=== PATIENT | male | born 1935 | race Caucasian/White ===

== ENCOUNTER 2017-12-08 17:21 | Emergency (ER) | payer OTHER, MEDICARE ==
[2017-12-08 19:14] LABS: ALBUMIN 3.3 g/dL (3.5-5.0); BUN/CREATININE RATIO 28.3 (6.0-26.0); CALCIUM 8.8 mg/dL (8.4-10.2); POTASSIUM 4.2 mmol/L (3.6-5.0); TOTAL BILIRUBIN 0.3 mg/dL (0.2-1.3); TOTAL PROTEIN 6.5 g/dL (6.3-8.2)
[2017-12-08 19:20] LABS: EOS % 0.1 % (0.0-4.0); HEMATOCRIT 43.2 % (42.0-52.0); HEMOGLOBIN 14.2 g/dL (13.5-18.0); LYMPH# 1.5 (1.50-4.00); MEAN CELL VOLUME 91 fl (78-100); MEAN CORPUSCULAR HEMOGLOBIN 30 pg (27-31); MEAN CORPUSCULAR HGB CONC 33 g/dL (33-37); MEAN PLATELET VOLUME 10.3 fl (7.4-10.4); MONO # 0.5 (0.20-0.80); NEU # 6.5 (1.40-6.50); PLATELET COUNT 148 K/mm3 (130-400); RED BLOOD COUNT 4.76 M/mm3 (4.20-5.60); RED CELL DISTRIBUTION WIDTH 16.7 % (11.5-14.5)
[2017-12-08 19:36] LABS: TROPONIN-I < 0.03 ng/mL (0.00-0.06)
[2017-12-08] MEDS ORDERED: ASPIRIN E.C. 8181 MG PO (19:46)
[2017-12-08] MEDS ORDERED: PRAVACHOL 40MG40 MG PO (19:47)
[2017-12-08] MEDS ORDERED: HYGROTON 2525 MG/TAB PO (19:48)
[2017-12-08] MEDS ORDERED: OS-CAL 500+D31 EACH PO (19:48)
[2017-12-08] MEDS ORDERED: COZAAR100 MG PO (19:49)
[2017-12-08] MEDS ORDERED: PEPCID 20MG TAB20 MG PO (19:49)
[2017-12-08] MEDS ORDERED: CARDIZEM CD240 M1 PO (19:49)
[2017-12-08] MEDS ORDERED: POTASSIUM CHLO10 ME5 PO (19:50)
[2017-12-08] MEDS ORDERED: DELTASONE20 M1 PO (19:51)
[2017-12-08 19:56] LABS: D-DIMER 2.26 mg/L FEU (0.15-0.50)
[2017-12-08 20:26] LABS: URINE APPEARANCE CLEAR; URINE BILIRUBIN NEGATIVE (NEGATIVE); URINE COLOR YELLOW; URINE GLUCOSE NEGATIVE (NEGATIVE); URINE KETONE NEGATIVE (NEGATIVE); URINE NITRATE NEGATIVE (NEGATIVE); URINE PROTEIN(semi-quant) 2+ mg/dL (NEGATIVE); URINE UROBILINOGEN NORMAL (NORMAL)
[2017-12-08 20:27] LABS: URINE BLOOD NEGATIVE (NEGATIVE); URINE LEUKOCYTE ESTERASE NEGATIVE (NEGATIVE); URINE WBC 0-1 /hpf (0-3)
[2017-12-08 21:52] VITALS: BP 166/81
== END 2017-12-08 21:52 | disposition home or self-care (01) ==
LOC: ED 17:21
PROVIDERS: Nurse Practitioner Primary Care
DX: R06.02 Shortness of breath (principal); R53.1 Weakness; R79.89 Other specified abnormal findings of blood chemistry; I10 Essential (primary) hypertension; Z85.46 Personal history of malignant neoplasm of prostate; Z79.82 Long term (current) use of aspirin
CPT/HCPCS: J1650; J7030; Q9967

== ENCOUNTER → 2017-12-09 | Outpatient (CLI) | payer OTHER, MEDICARE ==
[2017-12-08 21:52] VITALS: BP 166/81
[~2017-12-09] MED LIST: ASPIRIN E.C. 8181 MG PO; CARDIZEM CD240 M1 PO; COZAAR100 MG PO; DELTASONE20 M1 PO; HYGROTON 2525 MG/TAB PO; NORCO 325 MG-51 TA1 PO; OS-CAL 500+D31 EACH PO; PEPCID 20MG TAB20 MG PO; POTASSIUM CHLO10 ME5 PO; PRAVACHOL 40MG40 MG PO; ZOFRAN4 M2 PO
== END ==
LOC: RAD 08:35
DX: M79.662 Pain in left lower leg (principal); R79.1 Abnormal coagulation profile

== ENCOUNTER 2017-12-20 05:07 | Emergency (ER) | payer OTHER, MEDICARE ==
[~2017-12-20] VITALS: Ht 177.8 cm; Wt 118.2 kg
[~2017-12-20 05:07] MED LIST changes: -NORCO 325 MG-51 TA1 PO; -ZOFRAN4 M2 PO
[2017-12-20 06:14] LABS: EOS # 0.1 (0.04-0.40); EOS % 0.4 % (0.0-4.0); HEMATOCRIT 46.1 % (42.0-52.0); HEMOGLOBIN 14.7 g/dL (13.5-18.0); LYMPH# 3.3 (1.50-4.00); MEAN CELL VOLUME 92 fl (78-100); MEAN CORPUSCULAR HEMOGLOBIN 30 pg (27-31); MEAN CORPUSCULAR HGB CONC 32 g/dL (33-37); MONO # 0.9 (0.20-0.80); NEU # 7.9 (1.40-6.50); PLATELET COUNT 163 K/mm3 (130-400); RED BLOOD COUNT 4.99 M/mm3 (4.20-5.60); RED CELL DISTRIBUTION WIDTH 16.4 % (11.5-14.5); WHITE BLOOD COUNT 12.5 K/mm3 (4.8-10.8)
[2017-12-20 06:22] LABS: BUN/CREATININE RATIO 25.6 (6.0-26.0); POTASSIUM 4.1 mmol/L (3.6-5.0); TOTAL PROTEIN 6.9 g/dL (6.3-8.2)
[2017-12-20 06:29] LABS: ALBUMIN 3.6 g/dL (3.5-5.0); TOTAL BILIRUBIN 0.4 mg/dL (0.2-1.3)
[2017-12-20 07:31] LABS: URINE APPEARANCE CLEAR; URINE BILIRUBIN NEGATIVE (NEGATIVE); URINE BLOOD NEGATIVE (NEGATIVE); URINE COLOR YELLOW; URINE GLUCOSE NEGATIVE (NEGATIVE); URINE KETONE NEGATIVE (NEGATIVE); URINE LEUKOCYTE ESTERASE NEGATIVE (NEGATIVE); URINE MUCUS PRESENT (NOT PRESENT); URINE NITRATE NEGATIVE (NEGATIVE); URINE PROTEIN(semi-quant) 3+ mg/dL (NEGATIVE); URINE UROBILINOGEN NORMAL (NORMAL)
[2017-12-20] MEDS ORDERED: NORCO 325 MG-51 TA1 PO (10:01)
[2017-12-20] MEDS ORDERED: ZOFRAN4 M2 PO (10:01)
[2017-12-20 10:22] VITALS: BP 148/88
== END 2017-12-20 10:07 | disposition home or self-care (01) ==
LOC: ED 05:07
PROVIDERS: Family Medicine
DX: R10.33 Periumbilical pain (principal); I10 Essential (primary) hypertension; Z85.46 Personal history of malignant neoplasm of prostate; Z79.82 Long term (current) use of aspirin; Z79.52 Long term (current) use of systemic steroids
CPT/HCPCS: J0595; J2405; Q9967

== ENCOUNTER → 2018-05-18 | Outpatient (CLI) | payer OTHER, MEDICARE ==
[~2018-05-18] MED LIST changes: +NORCO 325 MG-51 TA1 PO; +ZOFRAN4 M2 PO
== END ==
LOC: RAD 07:41
DX: M43.16 Spondylolisthesis, lumbar region (principal); M48.07 Spinal stenosis, lumbosacral region; M51.26 Other intervertebral disc displacement, lumbar region; M24.28 Disorder of ligament, vertebrae; I71.4 Abdominal aortic aneurysm, without rupture

== ENCOUNTER 2018-11-10 07:43 | Emergency (ER) | payer BC, MEDICARE ==
[~2018-11-10] VITALS: Wt 115.4 kg
[2018-11-10] MEDS ORDERED: ELIQUIS2.5 MG PO (07:56)
[2018-11-10] MEDS ORDERED: NEURONTIN300 MG/CAP (08:03)
[2018-11-10 08:11] LABS: BASO # 0.1 (0.02-0.10); EOS # 0.3 (0.04-0.40); EOS % 2.5 % (0.0-4.0); HEMATOCRIT 48.6 % (42.0-52.0); HEMOGLOBIN 15.8 g/dL (13.5-18.0); LYMPH# 2.6 (1.50-4.00); MEAN CELL VOLUME 87 fl (78-100); MEAN CORPUSCULAR HEMOGLOBIN 28 pg (27-31); MEAN CORPUSCULAR HGB CONC 33 g/dL (33-37); MEAN PLATELET VOLUME 9.9 fl (7.4-10.4); NEU # 6.2 (1.40-6.50); PLATELET COUNT 202 K/mm3 (130-400); RED BLOOD COUNT 5.58 M/mm3 (4.20-5.60); RED CELL DISTRIBUTION WIDTH 15.5 % (11.5-14.5); WHITE BLOOD COUNT 10.3 K/mm3 (4.8-10.8)
[2018-11-10 08:25] LABS: ALBUMIN 3.7 g/dL (3.5-5.0); CALCIUM 8.8 mg/dL (8.4-10.2); POTASSIUM 3.9 mmol/L (3.6-5.0); TOTAL BILIRUBIN 0.7 mg/dL (0.2-1.3)
[2018-11-10 08:42] LABS: PROTHROMBIN TIME 10.4 SECONDS (9.0-12.0)
[2018-11-10] MEDS ORDERED: ELIQUIS5 MG PO (11:01)
[2018-11-10] MEDS ORDERED: CARDIZEM CD360 MG PO (11:02)
[2018-11-10] MEDS ORDERED: POTASSIUM CHLO10 ME7 PO (11:03)
[2018-11-10] MEDS ORDERED: METOPROLOL SUCC25 M1 PO (11:03)
[2018-11-10] MEDS ORDERED: NEURONTIN600 M1 PO (11:03)
[2018-11-10 11:11] VITALS: BP 121/76
== END 2018-11-10 10:28 | disposition other institution (70) ==
LOC: ED 07:43
PROVIDERS: Nurse Practitioner Primary Care
DX: G93.41 Metabolic encephalopathy (principal); I95.1 Orthostatic hypotension; E86.0 Dehydration; N17.9 Acute kidney failure, unspecified; M54.9 Dorsalgia, unspecified; G89.29 Other chronic pain; I10 Essential (primary) hypertension; I48.91 Unspecified atrial fibrillation; K21.9 Gastro-esophageal reflux disease without esophagitis; Z79.82 Long term (current) use of aspirin; Z79.01 Long term (current) use of anticoagulants; Z87.891 Personal history of nicotine dependence; Z85.46 Personal history of malignant neoplasm of prostate; Z86.79 Personal history of other diseases of the circulatory system; W01.0XXA Fall on same level from slipping, tripping and stumbling without subsequent striking against object, initial encounter; Y92.009 Unspecified place in unspecified non-institutional (private) residence as the place of occurrence of the external cause
CPT/HCPCS: J7030

== ENCOUNTER 2018-11-10 10:28 | Inpatient (IN) | payer OTHER, MEDICARE ==
[~2018-11-10] VITALS: Ht 175.3 cm; Wt 113.2 kg
[~2018-11-10 10:28] MED LIST changes: +ELIQUIS2.5 MG PO; +NEURONTIN300 MG/CAP
[2018-11-10 10:43] VITALS: BP 102/73
[2018-11-10] MEDS ORDERED: ELIQUIS5 MG PO (11:01)
[2018-11-10] MEDS ORDERED: CARDIZEM CD360 MG PO (11:02)
[2018-11-10] MEDS ORDERED: METOPROLOL SUCC25 M1 PO (11:03)
[2018-11-10] MEDS ORDERED: POTASSIUM CHLO10 ME7 PO (11:03)
[2018-11-10] MEDS ORDERED: NEURONTIN600 M1 PO (11:03)
[2018-11-10 12:01] VITALS: BP 103/71
[2018-11-10 14:30] LABS: URINE APPEARANCE CLEAR; URINE COLOR YELLOW
[2018-11-10 14:31] LABS: URINE BILIRUBIN NEGATIVE (NEGATIVE); URINE BLOOD NEGATIVE (NEGATIVE); URINE GLUCOSE NEGATIVE (NEGATIVE); URINE KETONE NEGATIVE (NEGATIVE); URINE LEUKOCYTE ESTERASE NEGATIVE (NEGATIVE); URINE NITRATE NEGATIVE (NEGATIVE); URINE PROTEIN(semi-quant) 2+ mg/dL (NEGATIVE); URINE UROBILINOGEN NORMAL (NORMAL)
[2018-11-10 15:51] VITALS: BP 123/81
[2018-11-10 18:29] VITALS: BP 124/79
[2018-11-10 18:30] VITALS: BP 124/79
[2018-11-10 23:00] VITALS: BP 142/85
[2018-11-11] VITALS (7 sets, daily range): BP systolic 106–162; BP diastolic 66–103
[2018-11-11 07:22] LABS: EOS # 0.2 (0.04-0.40); EOS % 2.5 % (0.0-4.0); HEMATOCRIT 45.4 % (42.0-52.0); HEMOGLOBIN 14.3 g/dL (13.5-18.0); MEAN CELL VOLUME 88 fl (78-100); MEAN CORPUSCULAR HEMOGLOBIN 28 pg (27-31); MEAN CORPUSCULAR HGB CONC 32 g/dL (33-37); NEU # 5.5 (1.40-6.50); PLATELET COUNT 159 K/mm3 (130-400); RED BLOOD COUNT 5.14 M/mm3 (4.20-5.60); RED CELL DISTRIBUTION WIDTH 15.5 % (11.5-14.5); WHITE BLOOD COUNT 8.8 K/mm3 (4.8-10.8)
[2018-11-11 08:45] LABS: ALBUMIN 3.1 g/dL (3.5-5.0); CALCIUM 7.8 mg/dL (8.4-10.2); TOTAL BILIRUBIN 0.5 mg/dL (0.2-1.3); TOTAL PROTEIN 6.1 g/dL (6.3-8.2)
[2018-11-11 09:15] LABS: POTASSIUM 4.2 mmol/L (3.6-5.0)
[2018-11-12] VITALS (7 sets, daily range): BP systolic 113–158; BP diastolic 71–92
[2018-11-12 11:32] LABS: EOS # 0.2 (0.04-0.40); EOS % 2.1 % (0.0-4.0); HEMATOCRIT 46.3 % (42.0-52.0); HEMOGLOBIN 14.8 g/dL (13.5-18.0); LYMPH# 2.2 (1.50-4.00); MEAN CELL VOLUME 87 fl (78-100); MEAN CORPUSCULAR HEMOGLOBIN 28 pg (27-31); MEAN CORPUSCULAR HGB CONC 32 g/dL (33-37); MEAN PLATELET VOLUME 9.7 fl (7.4-10.4); MONO # 1.2 (0.20-0.80); NEU # 7.4 (1.40-6.50); PLATELET COUNT 194 K/mm3 (130-400); RED BLOOD COUNT 5.33 M/mm3 (4.20-5.60); RED CELL DISTRIBUTION WIDTH 15.3 % (11.5-14.5); WHITE BLOOD COUNT 11.2 K/mm3 (4.8-10.8)
[2018-11-12 11:46] LABS: ALBUMIN 3.7 g/dL (3.5-5.0); POTASSIUM 4.6 mmol/L (3.6-5.0); TOTAL BILIRUBIN 0.6 mg/dL (0.2-1.3)
[2018-11-13] VITALS (8 sets, daily range): BP systolic 117–134; BP diastolic 66–80
[2018-11-14 03:00] VITALS: BP 111/64
[2018-11-14 06:23] VITALS: BP 118/77
[2018-11-14 10:35] VITALS: BP 129/81
[2018-11-14 14:41] VITALS: BP 139/87
[2018-11-14 18:03] VITALS: BP 125/81
[2018-11-14 18:11] VITALS: BP 125/81
== END 2018-11-14 19:50 | disposition home health service (06) | DRG 64 ==
LOC: MED/SURG 10:28
PROVIDERS: Family Medicine; Internal Medicine; ADMIT Nurse Practitioner Primary Care
DX: I63.9 Cerebral infarction, unspecified (principal); G93.41 Metabolic encephalopathy; N17.9 Acute kidney failure, unspecified; E86.0 Dehydration; I48.91 Unspecified atrial fibrillation; I12.9 Hypertensive chronic kidney disease with stage 1 through stage 4 chronic kidney disease, or unspecified chronic kidney disease; N18.3 Chronic kidney disease, stage 3 (moderate); Z79.01 Long term (current) use of anticoagulants; J44.9 Chronic obstructive pulmonary disease, unspecified; E78.5 Hyperlipidemia, unspecified; G62.9 Polyneuropathy, unspecified; Z86.73 Personal history of transient ischemic attack (TIA), and cerebral infarction without residual deficits; K74.60 Unspecified cirrhosis of liver; Z85.46 Personal history of malignant neoplasm of prostate; F17.210 Nicotine dependence, cigarettes, uncomplicated; M54.5 Low back pain; I08.0 Rheumatic disorders of both mitral and aortic valves
CPT/HCPCS: A9585; J2270; J7030

== ENCOUNTER → 2018-12-06 | Outpatient (CLI) | payer OTHER, MEDICARE ==
[2018-11-14 18:11] VITALS: BP 125/81
[~2018-12-06] MED LIST changes: +CARDIZEM CD360 MG PO; +ELIQUIS5 MG PO; +METOPROLOL SUCC25 M1 PO; +NEURONTIN600 M1 PO; +POTASSIUM CHLO10 ME7 PO
[2018-12-06 15:26] LABS: BASO # 0.1 (0.02-0.10); EOS # 0.2 (0.04-0.40); EOS % 2.9 % (0.0-4.0); HEMATOCRIT 44.2 % (42.0-52.0); HEMOGLOBIN 13.6 g/dL (13.5-18.0); LYMPH# 2.2 (1.50-4.00); MEAN CELL VOLUME 89 fl (78-100); MEAN CORPUSCULAR HEMOGLOBIN 27 pg (27-31); MEAN CORPUSCULAR HGB CONC 31 g/dL (33-37); MEAN PLATELET VOLUME 9.4 fl (7.4-10.4); MONO # 0.8 (0.20-0.80); NEU # 4.5 (1.40-6.50); PLATELET COUNT 223 K/mm3 (130-400); RED BLOOD COUNT 4.99 M/mm3 (4.20-5.60); RED CELL DISTRIBUTION WIDTH 15.3 % (11.5-14.5); WHITE BLOOD COUNT 7.9 K/mm3 (4.8-10.8)
[2018-12-06 16:52] LABS: CALCIUM 8.9 mg/dL (8.4-10.2); POTASSIUM 4.5 mmol/L (3.6-5.0); TOTAL BILIRUBIN 0.4 mg/dL (0.2-1.3); TOTAL PROTEIN 7.2 g/dL (6.3-8.2)
== END ==
LOC: LAB 15:04
PROVIDERS: Internal Medicine
DX: I48.91 Unspecified atrial fibrillation (principal); E11.22 Type 2 diabetes mellitus with diabetic chronic kidney disease; I25.10 Atherosclerotic heart disease of native coronary artery without angina pectoris; M54.16 Radiculopathy, lumbar region; I63.312 Cerebral infarction due to thrombosis of left middle cerebral artery

== ENCOUNTER → 2019-01-03 | Outpatient (CLI) | payer OTHER, MEDICARE ==
[2019-01-03 16:06] LABS: CALCIUM 9.4 mg/dL (8.4-10.2); POTASSIUM 4.2 mmol/L (3.6-5.0)
== END ==
LOC: LAB 14:54
PROVIDERS: Internal Medicine
DX: N18.3 Chronic kidney disease, stage 3 (moderate) (principal)

== ENCOUNTER → 2019-05-30 | Outpatient (CLI) | payer OTHER, MEDICARE ==
[2019-05-30 15:33] LABS: POTASSIUM 4.4 mmol/L (3.5-5.1)
[2019-05-30 15:34] LABS: ALBUMIN 3.9 g/dL (3.4-4.8)
[2019-05-30 15:36] LABS: TOTAL PROTEIN 7.4 g/dL (6.2-8.1)
[2019-05-30 15:38] LABS: TOTAL BILIRUBIN 0.6 mg/dL (0.2-1.2)
== END ==
LOC: LAB 15:11
PROVIDERS: Internal Medicine
DX: I63.312 Cerebral infarction due to thrombosis of left middle cerebral artery (principal); E11.22 Type 2 diabetes mellitus with diabetic chronic kidney disease; M54.16 Radiculopathy, lumbar region; I25.10 Atherosclerotic heart disease of native coronary artery without angina pectoris; I48.91 Unspecified atrial fibrillation; I48.92 Unspecified atrial flutter

== ENCOUNTER → 2019-08-24 | Outpatient (CLI) | payer OTHER, MEDICARE | LOC: RAD 08:31 | DX: I71.4 Abdominal aortic aneurysm, without rupture (principal) ==

== ENCOUNTER → 2019-10-06 | Outpatient (CLI) | payer OTHER, MEDICARE ==
[2019-10-06 08:57] LABS: POTASSIUM 4.1 mmol/L (3.5-5.1)
[2019-10-06 08:58] LABS: CALCIUM 8.4 mg/dL (8.3-10.5)
== END ==
LOC: RAD 07:56
PROVIDERS: Internal Medicine
DX: I71.2 Thoracic aortic aneurysm, without rupture (principal); I71.4 Abdominal aortic aneurysm, without rupture; M48.061 Spinal stenosis, lumbar region without neurogenic claudication; E11.22 Type 2 diabetes mellitus with diabetic chronic kidney disease; I70.0 Atherosclerosis of aorta; I25.10 Atherosclerotic heart disease of native coronary artery without angina pectoris; N18.3 Chronic kidney disease, stage 3 (moderate); J90 Pleural effusion, not elsewhere classified; I51.7 Cardiomegaly
CPT/HCPCS: Q9967